=== PATIENT | female | born 1985 | race Caucasian/White ===

== ENCOUNTER 2024-06-09 18:28 | Emergency (ER) | payer MEDICAID ==
[~2024-06-09] VITALS: Ht 175.3 cm; Wt 62.1 kg
[2024-06-09 18:55] VITALS: BP_SYST 114; PULSE 78; RESP 18; TEMP 97.8; O2SAT 98
[2024-06-09 21:21] VITALS: BP_SYST 114; PULSE 78; RESP 18; TEMP 97.8; O2SAT 98
== END 2024-06-09 21:06 | disposition home or self-care (01) ==
LOC: SED 18:28
DX: S90.851A Superficial foreign body, right foot, initial encounter (principal); Z88.0 Allergy status to penicillin; W25.XXXA Contact with sharp glass, initial encounter; Y93.89 Activity, other specified; Y92.89 Other specified places as the place of occurrence of the external cause; Y99.8 Other external cause status
CPT/HCPCS: 99284